=== PATIENT | male | born 1940 | race Caucasian/White ===

== ENCOUNTER → 2018-06-15 | Outpatient (CLI) | payer MEDICARE, OTHER ==
[~2018-06-15] MED LIST: CALC-488 PO; CALC500T5 PO; CALC600T63 PO; CALCIUM; CHOL400C PO; CIPR500S3 PO; FAMO20TA28 PO; FISH OIL; GLUC-232 PO; GLUCOSAMINE; HYDR-2966 PO; HYDR-6016 PO; IBUP800T37 PO; LEVO-85 PO; LISI-355 PO; LUTE1CAP PO; MULT-27 PO; MULT1TAB54 PO; OMEG300C PO; PHEN200T32 PO; TAMS0.4C25 PO; TAMS0.4C70 PO; TETR15DR81 OP; TYLENOL; VITAMIN C; VITAMIN D; [UNRECOGNIZED DRUG - CODE] NS; blood pressure med
--- NOTE | 2018-06-15 13:17 | RADIOLOGY IMAGING REPORT ---
FACILITY: [facility] - [place] PATIENT NAME: Meño Clemens : 1940 MR: [id number] V: [id number] EXAM DATE: ORDERING PHYSICIAN: ALEXANDER HOUSER TECHNOLOGIST: [facility] Patient: Meño Clemens : 1940 Visit/Account:[id number] Date of Sevice: 06/15/2018 DEXA Scan Clinical history: Osteoporosis. Comparison: DEXA scan from 08-02. LUMBAR SPINE: The bone mineral density (BMD) measured from L1-L4 correlates with a Z-score of -0.4 and a T-score of -0.8 which is Normal as defined by the World Health Organization. The corresponding risk of fractur e in the lumbar spine is 1-2 times increased compared with a young adult reference population. This value has increase by 0.1 % since the prior study. More than 5% change is considered significant. HIP: Bone mineral density (BMD) measured in the LEFT total hip region correlates with a Z-score -1.6 and a T-score of -2.4 which is osteopenia as defined by the World Health Organization. The corresponding risk of fracture in the hip is 4-6 times increased compared to a young adult reference population. Th is value has decrease by 2.9 % since the prior study. More than 5% change is considered significant. T score left femoral neck -0.7 Bone mineral density (BMD) measured in the Femoral Neck region measures 0.980 g/cm?. IMPRESSION: 1. Lumbar spine: Normal. There has been 0.1% increase in the bone mineral density since the previou s exam. 2. Left Total Hip: Osteopenia. There has been 2.9% decrease in the bone mineral density since the p revious exam. 3. Femoral Neck: Bone Mineral Density is 0.980 g/cm? The next DEXA scan of this patient should include the following sites: L1-L4 and the left hip. FRAX? WHO Fracture Risk Assessment Tool link: <http://www.shef.ac.uk/FRAX/tool.jsp?locationValue=9> PLEASE NOTE: 1) The World Health Organization defines low BMD as follows: T-score Normal > -1 Osteopenia < -1 and > -2.5 Osteoporosis < -2.5 without fractures Established osteoporosis < -2.5 with fractures 2) In general, you may wish to consider: Diagnosis Treatment Follow-up DEXA Normal BMD Prevention 2-3 years Osteopenia Prevention/therapy 1-2 years Osteoporosis Therapy Yearly 3) Fracture risk estimated from the T-score is more accurate for vertebral fractures (often spontane ous) than for hip fractures. Report Dictated By: Jayne Poon MD at 06/15/2018 1:13 PM Report E-Signed By: Jayne Poon MD at 06/15/2018 1:14 PM WSN:[id number]
== END ==
LOC: RAD 10:16
PROVIDERS: ATTEND Nurse Practitioner Family
DX: M85.80 Other specified disorders of bone density and structure, unspecified site (principal)
CPT/HCPCS: 77080